=== PATIENT | female | born 1950 | race Caucasian/White ===

== ENCOUNTER → 2016-10-16 | Outpatient (CLI) | payer MEDICARE | END | disposition home or self-care (01) | LOC: CFH 13:08 | PROVIDERS: ATTEND Registered Nurse | DX: R92.2 Inconclusive mammogram (principal) | CPT/HCPCS: 76642 ==

== ENCOUNTER → 2017-05-29 | Outpatient (CLI) | payer MEDICARE | LOC: RAD 14:14 | PROVIDERS: ATTEND Family Medicine | DX: R10.9 Unspecified abdominal pain (principal); Q63.2 Ectopic kidney | CPT/HCPCS: 76700 ==

== ENCOUNTER → 2017-07-03 | Outpatient (CLI) | payer MEDICARE | END | disposition home or self-care (01) | LOC: PETCFH 08:05 | PROVIDERS: ATTEND Family Medicine | DX: R10.11 Right upper quadrant pain (principal) | CPT/HCPCS: 78227; A9537 ==

== ENCOUNTER → 2017-08-27 | Outpatient (CLI) | payer MEDICARE ==
[~2017-08-27] MED LIST: CALC-623 PO; CARB15DR7 EACHEYE; ESTR0.6246 PO; FISH1CAP PO; FLUT9.9S NS; LACT1CAP37 PO; LANS30CA PO; LEVO88TA4 PO; LORA10CA PO; MULT-658 PO; PRAV40TA2 PO; SUMA100T4 PO; TURM500C4 PO; UBID100C24 PO; VITA400C43 PO
== END | disposition home or self-care (01) ==
LOC: STAR 13:13
PROVIDERS: ATTEND Surgery
DX: Z01.818 Encounter for other preprocedural examination (principal); K81.1 Chronic cholecystitis
CPT/HCPCS: 93005

== ENCOUNTER 2017-09-04 13:28 | Day surgery (SDC) | payer MEDICARE ==
[2017-08-27 13:37] VITALS: BP 138/94
[~2017-09-04] VITALS: Ht 175.3 cm; Wt 86.0 kg
[~2017-09-04 13:28] MED LIST changes: +BUPIVACAINE/PF 0.5% ONE
[2017-09-04] MEDS ORDERED: INDOCYANINE GREEN 25 MG VIAL IVPush ONE ×2 (13:42→13:48)
[2017-09-04] MEDS: LACTATED RINGERS 1,000 ML IV SCH ×2 (14:26→18:51)
[2017-09-04] MEDS ORDERED: MIDAZOLAM 1 MG/ML, 2ML ONE (14:38)
[2017-09-04] MEDS ORDERED: FENTANYL PF 250 MCG/5ML ONE (14:38)
[2017-09-04] MEDS ORDERED: SCOPOLAMINE PATCH, 1.5MG PATCH.TD72 TD ONE ×2 (15:10→15:30)
[2017-09-04] MEDS ORDERED: ONDANSETRON ODT 8 MG ONE (15:11)
[2017-09-04] MEDS ORDERED: CEFAZOLIN 1,000 MG ONE (15:25)
[2017-09-04] MEDS ORDERED: ONDANSETRON 2MG/ML, 2ML ONE (15:25)
[2017-09-04] MEDS ORDERED: DEXAMETHASONE 4 MG/ML, 1ML ONE (15:25)
[2017-09-04] MEDS ORDERED: ROCURONIUM 10 MG/ML,10ML ONE (15:25)
[2017-09-04] MEDS ORDERED: PROPOFOL 10 MG/ML, 20ML ONE (15:25)
[2017-09-04] MEDS ORDERED: ONDANSETRON ODT 8 MG PO ONE (15:30)
[2017-09-04] MEDS ORDERED: BUPIVACAINE/PF-EPI 0.5% 1:200K IM ONE (15:50)
[2017-09-04] MEDS ORDERED: SUGAMMADEX 200 MG/2 ML IVPush ONE ×2 (15:58→16:00)
[2017-09-04] MEDS ORDERED: morphine SULFATE 10 MG/ML, 1ML IV PRN (16:00)
[2017-09-04] MEDS ORDERED: MEPERIDINE/PF 25MG/0.5ML IVPush PRN (16:00)
[2017-09-04] MEDS ORDERED: OXYcodone 5 MG/5 ML ORAL.SOL UDC PO PRN ×2 (16:00→16:30)
[2017-09-04] MEDS ORDERED: hydrALAzine 20 MG/ML, 1ML IV PRN (16:00)
[2017-09-04] MEDS ORDERED: HYDROmorphone 1 MG/ML, 1ML IV PRN (16:00)
[2017-09-04] MEDS ORDERED: PROMETHAZINE 25 MG/ML, 1ML IV PRN (16:00)
[2017-09-04] MEDS ORDERED: PROMETHAZINE 12.5 MG SUPP PR PRN (16:00)
[2017-09-04] MEDS ORDERED: ACETAMINOPHEN 325 MG TABLET PO PRN (16:00)
[2017-09-04] MEDS ORDERED: LORazepam 2 MG/ML, 1ML IVPush PRN (16:00)
[2017-09-04] MEDS ORDERED: KETOROLAC 30 MG/1 ML ONE (16:10)
[2017-09-04] MEDS ORDERED: ACETAMINOPHEN 650 MG/20.3 ML UDC ONE (16:10)
[2017-09-04] MEDS ORDERED: FENTANYL PF 100 MCG/2ML ONE (16:10)
[2017-09-04] MEDS ORDERED: OXYcodone 5 MG/5 ML ORAL.SOL UDC ONE (16:11)
[2017-09-04] MEDS: FENTANYL PF 100 MCG/2ML IV PRN ×2 (16:15→16:30)
[2017-09-04] MEDS ORDERED: KETOROLAC 30 MG/1 ML IVPush ONE ×2 (16:30)
[2017-09-04] MEDS ORDERED: morphine SULFATE 10 MG/ML, 1ML IVPush PRN (16:30)
[2017-09-04 18:30] VITALS: BP 138/65
[2017-09-04] MEDS ORDERED: OXYC5TAB2 PO (19:59)
== END 2017-09-04 21:25 | disposition home or self-care (01) ==
LOC: OUT 13:28 → 4NOR 17:24 → OUT 21:25
PROVIDERS: ATTEND Surgery
DX: K81.1 Chronic cholecystitis (principal); E78.5 Hyperlipidemia, unspecified; Z87.39 Personal history of other diseases of the musculoskeletal system and connective tissue; Z90.710 Acquired absence of both cervix and uterus; Z98.890 Other specified postprocedural states; Z72.89 Other problems related to lifestyle
CPT/HCPCS: 47562; 88304; J0690; J1100; J1885; J2250; J2405; J2704; J3010; J3490; J7120; Q0162

== ENCOUNTER 2019-11-26 13:57 | Outpatient (CLI) | payer MEDICARE ==
[~2019-11-26 13:57] MED LIST changes: -BUPIVACAINE/PF 0.5% ONE; +OXYC5TAB2 PO
== END 2019-11-26 23:59 | disposition home or self-care (01) ==
LOC: CFH 13:57
PROVIDERS: ATTEND Family Medicine
DX: Z12.31 Encounter for screening mammogram for malignant neoplasm of breast (principal)
CPT/HCPCS: 76641; 77063; 77067